=== PATIENT | male | born 1975 | race African-American/Black ===

== ENCOUNTER 2016-07-29 16:08 | Emergency (ER) | payer OTHER ==
[~2016-07-29] VITALS: Ht 193 cm; Wt 97.7 kg
[2016-07-29 16:10] VITALS: BP 136/82; PULSE 87; RESP 15; O2SAT 96
--- NOTE | 2016-07-29 16:32 | ED.REPORT ---
HPI-Abd Pain M 40 and Over Date of Service Jul 29, 2016 ED Provider: Francis Chandler MD Pt is a 41 y.o. male with a hx of ureteral stricture who presents to the ED via POV from [facility] for a urinary consult. Pt was complaining or urinary retention onset 3 days ago and staff at [facility] were unable to place a catheter. Upon arrival to the ED pt states he is experiencing abdominal pain and pressure, low back pain, and lightheadedness. He reports that he has received multiple intermittent indwelling catheters, the most recent being in January of 2016. Nursing Notes Stated Complaint: URINE RETENTION Chief Complaint: Male Abdominal Pain Nursing Notes Reviewed: Yes Allergies: Coded Allergies: acetaminophen (Verified Adverse Reaction, Intermediate, WHEN COMBINED WITH SULFA, 07/29/16) hydrocodone (Verified Adverse Reaction, Intermediate, WHEN COMBINED WITH SULFA, 07/29/16) General Time Seen by MD: 16:32 Chief Complaint Abdominal pain, Unable to urinate Hx Obtained From: Patient Arrived By: Walk-in Sudden in Onset?: Yes Onset Occurred: 3 days ago Symptom Duration: Since onset Location: : Abdomen lower: Back Quality: Painful, Pressure Severity: Current: Moderate Similar Sx Previous: Yes Past Medical History Past Medical History Uretheral stricture Ambulatory Status Independent Review of Systems GI: Reports: Abdominal pain Male: Reports Urination decreased (retention) Musculoskeletal: Reports: Back pain Complete sys rev & neg: except as marked. Neurologic: Reports: Lightheaded Physical Exam Initial Vital Signs Vital Signs (First) Date Time Temp Pulse Resp B/P Pulse Ox O2 Delivery O2 Flow Rate FiO2 07/29/16 16:10 36 87 15 136/82 96 Room Air Initial VS: Reviewed Head / Eyes: Atraumatic, Normocephalic Extremities: Vascular intact, Neuro intact Skin: Warm, Dry, No cyanosis Neurologic: Alert, Oriented, Nonfocal Psychiatric: Mood/affect normal, Behavior normal, Normal thought content General/Constitutional: Awake, Alert, No acute distress, Well appearing, Well developed, Well nourished, Not toxic appearing Respiratory / Chest: Atraumatic, Breath sounds NL, Breath sounds = bilat, No respiratory distress, No rales, No rhonchi, No wheezing, No retractions, No stridor Cardiovascular: Heart rate NL, Regular rhythm, Heart sounds NL, Peripheral circulation NL Abdomen: Atraumatic, Soft, No guarding, No rebound, No distention Tenderness/Guarding/Rebound: Positive: Tender suprapubic Back: Atraumatic, Inspection NL, Non-tender Re-Eval/Medical Decision Med Decision/Clinical Course 41-year-old male history of urethral stricture for [address] Garcia Urology with 6 episodes of intermittent weeklong catheterizations for urinary retention over the last 13 years. Most recently in January. Now with decreased voiding 2 days. Patient was seen at [facility] and sent over here for urology consultation as they did not have urology. Patient had bladder scan with 250 ML's. Unable to insert catheter at [facility] or here. Urology was consulted and they said they did not have the equipment to do catheterization here on this patient therefore they recommended sending to outside facility. While awaiting transport, patient voided 360 mL's and felt much better. He reports his bladder distention was resolved. He was able to void quite extensively. I gave him the option of being transferred to the outside facility versus following up with his urologist tomorrow. He preferred to go home and follow up with his urologist tomorrow. We have given him the phone number for the patient. He will return if he has any worsening abdominal pain, bladder distention, any other voiding difficulties. Source of Hx: Old records Time of Eval: 18:39 Re-Evaluation/Progress Note: Pt rechecked. Pt states that he is feeling improved and no longer feels bladder pressure. Discussed need for transfer, pt states that he is feeling improved and would prefer to follow-up with his urologist tomorrow. Pt has produced 360mL of urine while in ED. Consultation : Referral / Consult Name: Eleni Salter MD Consulted With: Urology Call Returned at: 16:39 Note: Consulted with Dr. Salter, urology, regarding pt condition. He recommends attempting to catheterize pt. Counseled Regarding: Diagnosis, Lab results Discharge & Departure Primary Impression: Urinary retention Disposition: Home Vital Signs - All Vital Signs Date Time Temp Pulse Resp B/P Pulse Ox O2 Delivery O2 Flow Rate FiO2 07/29/16 19:12 80 16 97 Room Air 07/29/16 16:10 36 87 15 136/82 96 Room Air )( All Prior VS Reviewed: Yes Condition: Stable Patient Instructions: Urinary Retention in Men (ED) Additional Instructions: You were seen today for urinary retention. I recommend you follow up with Dr. Garcia, urology, tomorrow. Seek care if you experience severe abdominal pain, decreased urination, fever, or any new or worsening symptoms. Referrals: OTHER,PHYSICIAN (PCP) Ernestine Garcia MD Attestation Portions of this note were transcribed by Jonathan Ward. I, Dr. Chandler personally performed the history, physical exam and medical decision-making; I reviewed and confirmed the accuracy of the information in the transcribed note. Signed by: Aranza Hines, 07/29/16 and 1953. copies to: Ernestine Garcia MD, Ben M MD Jul 29, 2016 16:32 JONATHAN WARD Jul 29, 2016 16:41
[2016-07-29] MEDS ORDERED: Lidocaine 2% 6mL Topical Jelly ONE (17:07)
[2016-07-29 19:12] VITALS: PULSE 80; RESP 16; O2SAT 97
== END 2016-07-29 19:13 | disposition home or self-care (01) ==
LOC: SED 16:08
DX: R33.9 Retention of urine, unspecified (principal); R10.9 Unspecified abdominal pain; M54.5 Low back pain; R42 Dizziness and giddiness; Z88.6 Allergy status to analgesic agent; Z88.5 Allergy status to narcotic agent